=== PATIENT | male | born 1970 ===

== ENCOUNTER 2022-04-26 13:16 | Outpatient (CLI) | payer OTHER | END 2022-04-26 13:21 | disposition home or self-care (01) | LOC: RAD 13:16 | DX: M99.01 Segmental and somatic dysfunction of cervical region (principal); M99.02 Segmental and somatic dysfunction of thoracic region; M99.03 Segmental and somatic dysfunction of lumbar region; M99.04 Segmental and somatic dysfunction of sacral region; M99.05 Segmental and somatic dysfunction of pelvic region ==

== ENCOUNTER 2024-11-17 12:25 | Inpatient (IN) | payer OTHER ==
[~2024-11-17] VITALS: Ht 170.2 cm; Wt 76.2 kg
--- NOTE | 2024-11-17 12:53 | NUR ---
AL MOMENTO PACIENTE VIENE EN COMPANIA DE PARAMEDICOS DE AMBULANCIA LOS CUALES REFIEREN QUE PACIENTE SE VAISHALI EN LA MANANA DE JONATHAN. AL MOMENTO SE OBSERVA PACIENTE LETARGICO Y CON DIFICULTAD PARA RESPONDER, SE REALIZA EKG Y SE PRESENTA A MEDICO.
[2024-11-17] MEDS ORDERED: 0.9 % SODIUM CHLORIDE 250 ML IV SCH (13:15)
--- NOTE | 2024-11-17 14:01 | NUR ---
SE ORIENTA A PACIENTE SOBRE TX MEDICO QUIEN INDICA ENTENDE RY ACEPTAR. SE COLECTAN MUESTRAS DE LABORATORIO BAJO MEDIDAS ASEPTICAS, VNEOPUNCION PATENTE LAURA DE EDEMA. PACIENTE SE LLEVA A CT
[2024-11-17 14:13] LABS: HEMATOCRIT 34.9 % (39.0-48.0); MEAN CELL VOLUME 79.3 fL (80.0-100.00); PLATELET COUNT 138 K/uL (150-450)
[2024-11-17 14:14] LABS: HEMOGLOBIN 11.5 g/dL (13-16.00); MEAN CORPUSCULAR HEMOGLOBIN 26.1 pg (27.00-32.0)
[2024-11-17 14:42] LABS: ALBUMIN 3.5 gm/dL (3.4-5.0); BILIRUBIN TOTAL 1.5 mg/dL (0.3-1.2); CALCIUM 8.8 mg/dL (8.5-10.1); CREATININE SERUM 1.06 mg/dL (0.70-1.30); GFR 73.36; GLOBULINA 3.4 G/DL (2.4-3.5); POTASSIUM 3.52 mEq/L (3.5-5.1); TOTAL PROTEIN 6.9 gm/dL (6.4-8.2)
[2024-11-17 14:59] LABS: INR 1.24; PARTIAL THROMBOPLASTIN TIME 37.3 SECONDS (22.0-34.0); PROTHROMBIN TIME 13.3 SECONDS (9.0-11.5)
[2024-11-17] MEDS ORDERED: AZITHROMYCIN 500 MG VIAL IV ONE ×2 (18:30→18:45)
[2024-11-17 18:55] LABS: PH,URINE 5.5 (5.0-8.0); URINE APPEARANCE Cloudy; URINE BILIRRUBIN Negative (NEGATIVE); URINE BLOOD Small; URINE COLOR Dark Yellow; URINE KETONE Negative (NEGATIVE); URINE LEUKOCYTE Negative; URINE NITRATE Negative
[2024-11-17 19:03] LABS: URINE BACTERIA 34.2 uL (0.0-1933); URINE CAST 1.76 uL (0.0-1.40); URINE EPITHELIAL CELLS 8.2 uL (0.0-38.8); URINE WBC 4.1 uL (0.0-23.2)
[2024-11-17 19:25] LABS: URINE GLUCOSE 100 MG/DL (NEGATIVE); URINE PROTEIN 100 (NEGATIVE)
--- NOTE | 2024-11-17 22:09 | NUR ---
SE RECIBE PTE ALERTA Y ORIENTADO EN PERSONA EN EMILIE. PTE CON H/L COLOCADO, SE COLOCA GONSALEZ A PTE Y SE HAYLEY MUESTRA DE UA Y UC. PTE AL MOMENTO NO SE OBSERVA CON FAMILIARES EN CLIFFORD DE EMERGENCIAS. PTE SE CONSULTA CON PERSONAL DE TRABAJO SOCIAL POR SOPORTE FAMILIAR POBRE Y POBRE CONOCIMIENTO DEL PTE EN CUANTO A ARIS CONDICIONES MEDICAS.
[2024-11-18 10:33] LABS: HEMATOCRIT 32.9 % (39.0-48.0); MEAN CELL VOLUME 77.7 fL (80.0-100.00); MEAN CORPUSCULAR HGB CONC 34.3 g/dl (32.0-36.0); RED BLOOD COUNT 4.23 M/uL (4.00-6.00); RED CELL DISTRIBUTION WIDTH 15.1 % (11.5-14.5)
[2024-11-18 10:34] LABS: HEMOGLOBIN 11.3 g/dL (13-16.00); MEAN CORPUSCULAR HEMOGLOBIN 26.7 pg (27.00-32.0); PLATELET COUNT 148 K/uL (150-450)
[2024-11-18] MEDS ORDERED: AZITHROMYCIN 500 MG TABLET PO ONE ×2 (11:00→11:03)
[2024-11-18] MEDS ORDERED: FAMOTIDINE/PF 20 MG in 0.9 % SODIUM CHLORIDE 8 ML IV PUSH SCH (11:07)
[2024-11-18] MEDS ORDERED: CEFTRIAXONE SODIUM 2,000 MG in 0.9 % SODIUM CHLORIDE 100 ML IV SCH (11:07)
[2024-11-18] MEDS ORDERED: SODIUM CHLORIDE 0.45 % 1,000 ML IV SCH (11:15)
[2024-11-18] MEDS ORDERED: ENALAPRILAT DIHYDRATE 1.25 MG/ML VIAL IV PRN (11:15)
[2024-11-18] MEDS ORDERED: ACETAMINOPHEN 325 MG TABLET PO PRN (11:15)
[2024-11-18] MEDS ORDERED: DEXTROSE 50 % IN WATER 0.5 G/ML DISP.SYRIN IV PRN (11:30)
[2024-11-18] MEDS ORDERED: INSULIN LISPRO 1,000 UNIT/10 ML UNITS SUBCUTANEO PRN (11:30)
[2024-11-18 11:49] LABS: ABG PO2 58.7 mmHg (80-100); BASE EXCESS 1.3 mmol/l; BICARBONATE 23.8 mmol/l (23-25); SaO2 92.4 %; Tco2 24.8 mmol/l
[2024-11-18 11:51] LABS: allen test SATISFACTORY; o2 21 %; puncture site RADIAL LEFT
[2024-11-18] MEDS ORDERED: ALBUTEROL SULFATE 3 ML/2.5 MG AMPUL.NEB IH SCH (12:00)
[2024-11-18] MEDS ORDERED: FAMOTIDINE/PF 20 MG/2 ML VIAL ONE (12:29)
[2024-11-18] MEDS ORDERED: CEFTRIAXONE SODIUM 2,000 MG VIAL ONE (12:29)
[2024-11-18] MEDS ORDERED: ACETAMINOPHEN 500 MG GEL..CAP PO PRN (12:45)
[2024-11-18 15:25] VITALS: BP 147/87; O2SAT 97
[2024-11-18 18:00] VITALS: BP 137/87; O2SAT 97
[2024-11-19 02:03] VITALS: BP 146/80
[2024-11-19 06:39] LABS: HEMATOCRIT 33.8 % (39.0-48.0); HEMOGLOBIN 11.1 g/dL (13-16.00); MEAN CELL VOLUME 79.1 fL (80.0-100.00); MEAN CORPUSCULAR HEMOGLOBIN 25.9 pg (27.00-32.0); MEAN CORPUSCULAR HGB CONC 32.8 g/dl (32.0-36.0); PLATELET COUNT 171 K/uL (150-450); RED BLOOD COUNT 4.28 M/uL (4.00-6.00)
[2024-11-19 07:10] LABS: CALCIUM 8.5 mg/dL (8.5-10.1); CREATININE SERUM 0.83 mg/dL (0.70-1.30); GFR 97.29; POTASSIUM 3.75 mEq/L (3.5-5.1)
[2024-11-19 08:39] VITALS: BP 158/90
[2024-11-19] MEDS ORDERED: ENOXAPARIN SODIUM 40 MG/0.4 ML SYRINGE SUBCUTANEO SCH (09:00)
[2024-11-19] MEDS ORDERED: LEVALBUTEROL HCL 1.25 MG/3 ML SOLUTION IH SCH (09:00)
[2024-11-19] MEDS ORDERED: CARVEDILOL 6.25 MG TABLET PO NR (10:00)
[2024-11-19] MEDS ORDERED: TAMSULOSIN HCL 0.4 MG CAP PO NR (10:00)
[2024-11-19] MEDS ORDERED: NICOTINE 21MG/24HR PATCH.TD24 TD SCH (10:46)
[2024-11-19] MEDS ORDERED: INSULIN LISPRO 1,000 UNIT/10 ML UNITS SUBCUTANEO PRN (11:00)
[2024-11-19] MEDS ORDERED: LISINOPRIL 5 MG TABLET PO SCH (11:00)
[2024-11-19] MEDS ORDERED: CARVEDILOL 6.25 MG TABLET PO SCH (17:00)
[2024-11-19 20:21] VITALS: BP 133/85; O2SAT 98
[2024-11-19] MEDS ORDERED: INSULIN GLARGINE,HUM.REC.ANLOG 1,000 UNITS/10 ML UNITS SUBCUTANEO SCH (21:00)
[2024-11-20 02:19] VITALS: BP 155/90
[2024-11-20] MEDS ORDERED: TAMSULOSIN HCL 0.4 MG CAP PO SCH (09:00)
[2024-11-20 09:33] VITALS: BP 136/88
[2024-11-20] MEDS ORDERED: METHYLPREDNISOLONE SOD SUCC 40 MG VIAL IV SCH (09:46)
[2024-11-20 15:31] LABS: RAPID PLASMA REAGIN NONREACTIVE BY RPR (NONREACTIVE)
[2024-11-20 17:26] VITALS: BP 145/88; O2SAT 96
[2024-11-21 02:07] VITALS: BP 150/86
[2024-11-21 05:23] LABS: HEMOGLOBIN 11.3 g/dL (13-16.00); MEAN CELL VOLUME 79.8 fL (80.0-100.00); MEAN CORPUSCULAR HEMOGLOBIN 26.6 pg (27.00-32.0); MEAN CORPUSCULAR HGB CONC 33.3 g/dl (32.0-36.0); PLATELET COUNT 231 K/uL (150-450); RED BLOOD COUNT 4.26 M/uL (4.00-6.00); RED CELL DISTRIBUTION WIDTH 15.2 % (11.5-14.5)
[2024-11-21 05:52] LABS: CREATININE SERUM 0.83 mg/dL (0.70-1.30); GFR 97.29; POTASSIUM 4.12 mEq/L (3.5-5.1)
[2024-11-21 12:32] VITALS: BP 182/96
[2024-11-21 16:58] VITALS: BP 149/88
[2024-11-22 00:55] VITALS: BP 152/84
[2024-11-22 08:59] VITALS: BP 163/90; O2SAT 98
[2024-11-22] MEDS ORDERED: METHYLPREDNISOLONE SOD SUCC 40 MG VIAL IV SCH (17:00)
[2024-11-22 17:31] VITALS: BP 150/92
[2024-11-23 01:48] VITALS: BP 149/82
[2024-11-23 09:33] VITALS: BP 165/88; O2SAT 98
[2024-11-23 18:32] VITALS: BP 178/96
[2024-11-24 00:37] VITALS: BP 115/76
[2024-11-24] MEDS ORDERED: METHYLPREDNISOLONE SOD SUCC 40 MG VIAL IV SCH (09:00)
[2024-11-24 09:09] VITALS: BP 130/90; O2SAT 98
[2024-11-24 09:49] LABS: BASE EXCESS 2.7 mmol/l; SaO2 98.8 %; allen test SATISFACTORY; o2 21 %; puncture site RADIAL LEFT
== END 2024-11-24 12:51 | disposition home or self-care (01) | DRG 193 ==
LOC: ER 12:25 → MEDJ 11-18 13:39
PROVIDERS: Emergency Medicine; General Practice; Internal Medicine Infectious Disease; ADMIT Student in an Organized Health Care Education/Training Program; ATTEND Student in an Organized Health Care Education/Training Program
PROC: BW28ZZZ Computerized Tomography (CT Scan) of Head (ICD-10-PCS; principal; 2024-11-17)
PROC: B030ZZZ Magnetic Resonance Imaging (MRI) of Brain (ICD-10-PCS; 2024-11-18)
PROC: 5A0935A Assistance with Respiratory Ventilation, Less than 24 Consecutive Hours, High Flow/Velocity Cannula (ICD-10-PCS; 2024-11-18)
PROC: BB24ZZZ Computerized Tomography (CT Scan) of Bilateral Lungs (ICD-10-PCS; 2024-11-19)
PROC: 3E0F7GC Introduction of Other Therapeutic Substance into Respiratory Tract, Via Natural or Artificial Opening (ICD-10-PCS; 2024-11-19)
DX: J18.9 Pneumonia, unspecified organism (principal); I63.9 Cerebral infarction, unspecified; N39.0 Urinary tract infection, site not specified; G45.9 Transient cerebral ischemic attack, unspecified; I10 Essential (primary) hypertension; D72.828 Other elevated white blood cell count; E11.9 Type 2 diabetes mellitus without complications; Z79.4 Long term (current) use of insulin; R09.02 Hypoxemia; R41.82 Altered mental status, unspecified; Z72.0 Tobacco use; E86.0 Dehydration; S00.83XA Contusion of other part of head, initial encounter; W13.3XXA Fall through floor, initial encounter; Y92.510 Bank as the place of occurrence of the external cause
CPT/HCPCS: 70551

== ENCOUNTER 2025-03-24 18:52 | Emergency (ER) | payer OTHER ==
[~2025-03-24] VITALS: Ht 170.2 cm; Wt 90.7 kg
[2025-03-24] MEDS ORDERED: CEFTRIAXONE SODIUM 1,000 MG VIAL ONE (21:08)
[2025-03-24] MEDS ORDERED: FAMOTIDINE/PF 20 MG/2 ML VIAL ONE (21:09)
[2025-03-24] MEDS ORDERED: 0.9 % SODIUM CHLORIDE 1,000 ML IV ONE (21:15)
[2025-03-24] MEDS ORDERED: CEFTRIAXONE SODIUM 1,000 MG VIAL IV ONE (21:15)
[2025-03-24] MEDS ORDERED: FAMOtidine 10 MG/ML (4ML VIAL) IV ONE (21:15)
[2025-03-24 21:57] LABS: BASO % 0.3 % (0.1-1.2); EOS # 0.02 (0.04-0.54); EOS % 0.3 % (0.7-7.0); HEMATOCRIT 36.8 % (40.1-51.0); HEMOGLOBIN 12.3 g/dL (13.7-17.5); LYMPH # 0.75 (1.18-3.74); LYMPH % 9.5 % (19.3-53.1); MEAN CORPUSCULAR HEMOGLOBIN 25.9 pg (25.6-32.2); MONO # 0.34 (0.24-0.82); MONO % 4.3 % (4.7-12.5); NEUT # 6.71 (1.56-6.13); PLATELET COUNT 130 K/uL (163-369); RED BLOOD COUNT 4.75 M/uL (4.63-6.08); RED CELL DISTRIBUTION WIDTH 15.6 % (11.6-14.4)
[2025-03-24 22:13] LABS: INR 1.05; PARTIAL THROMBOPLASTIN TIME 27.9 SECONDS (22.0-34.0); PROTHROMBIN TIME 11.4 SECONDS (9.0-11.5)
[2025-03-24 22:17] LABS: ALBUMIN 4.1 gm/dL (3.4-5.0); BILIRUBIN TOTAL 0.61 mg/dL (0.3-1.2); CALCIUM 9.1 mg/dL (8.5-10.1); CREATININE SERUM 0.94 mg/dL (0.70-1.30); GFR 84.27; GLOBULINA 2.7 G/DL (2.4-3.5); POTASSIUM 3.74 mEq/L (3.5-5.1); TOTAL PROTEIN 6.8 gm/dL (6.4-8.2)
[2025-03-24] MEDS ORDERED: ONDANSETRON HCL 2 MG/ML VIAL IV ONE (23:45)
[2025-03-25] LABS: PH,URINE 5.5 (5.0-8.0); URINE APPEARANCE Clear; URINE BILIRRUBIN Negative (NEGATIVE); URINE BLOOD Negative; URINE COLOR Yellow; URINE GLUCOSE Negative (NEGATIVE); URINE KETONE Negative (NEGATIVE); URINE LEUKOCYTE Negative; URINE NITRATE Negative; URINE PROTEIN Negative (NEGATIVE); URINE UROBILINOGEN 0.2 E.U./dl
[2025-03-25 00:06] LABS: URINE BACTERIA 6.1 uL (0.0-1933); URINE EPITHELIAL CELLS 0.9 uL (0.0-38.8); URINE WBC 1.5 uL (0.0-23.2)
[2025-03-25 00:11] LABS: COCAINE NEGATIVE (NEGATIVE); METHADONE NEGATIVE (NEGATIVE); OPIATES NEGATIVE (NEGATIVE); THC ( Cannabinoids) NEGATIVE (NEGATIVE)
[2025-03-25 00:12] LABS: ABG PH 7.384 (7.35-7.45); ABG PO2 63.1 mmHg (80-100); ABG pCO2 39.6 mmHg (35-45); BASE EXCESS -1.7 mmol/l; BICARBONATE 23.1 mmol/l (23-25); SaO2 91.2 %; Tco2 24.3 mmol/l
[2025-03-25 00:17] LABS: allen test SATISFACTORY; mode ROOM AIR; o2 21 %; puncture site RADIAL RIGHT
[2025-03-25] MEDS ORDERED: ONDANSETRON HCL 2 MG/ML VIAL ONE (00:17)
[2025-03-25] MEDS ORDERED: ALBUTEROL SULFATE 3 ML/2.5 MG AMPUL.NEB IH ONE (03:56)
[2025-03-25] MEDS ORDERED: ALBUTEROL SULFATE 3 ML/2.5 MG AMPUL.NEB IH SCH (04:00)
[2025-03-25] MEDS ORDERED: ALBUTEROL2.5 MG/3 M IH (05:02)
[2025-03-25] MEDS ORDERED: ZYNCOF 20-400120 ML PO (05:02)
[2025-03-25] MEDS ORDERED: BUDESONIDE0.5 MG/2 M IH (05:02)
[2025-03-25] MEDS ORDERED: ZITHROMAX500 MG PO ×2 (05:03)
== END 2025-03-25 06:28 ==
LOC: ER 18:52
PROVIDERS: General Practice
DX: R06.02 Shortness of breath (principal); R10.9 Unspecified abdominal pain; I10 Essential (primary) hypertension; E11.9 Type 2 diabetes mellitus without complications
CPT/HCPCS: 36415; 70450; 71045; 74177; 82803; 93005; 94644; 96365; 96366; 99284; J0696; J2405; J3490; J7030; Q9965

== ENCOUNTER 2025-03-30 12:46 | Outpatient (CLI) | payer OTHER ==
[~2025-03-30 12:46] MED LIST: ALBUTEROL2.5 MG/3 M IH; BUDESONIDE0.5 MG/2 M IH; ZITHROMAX500 MG PO; ZYNCOF 20-400120 ML PO
== END 2025-03-30 12:50 | disposition home or self-care (01) ==
LOC: RAD 12:46
PROVIDERS: ATTEND Physical Medicine & Rehabilitation
DX: M54.6 Pain in thoracic spine (principal); M54.50 Low back pain, unspecified

== ENCOUNTER 2025-04-10 12:07 | Outpatient (CLI) | payer OTHER | END 2025-04-10 12:21 | disposition home or self-care (01) | LOC: MRI 12:07 | PROVIDERS: ATTEND Physical Medicine & Rehabilitation | DX: M54.50 Low back pain, unspecified (principal); M54.16 Radiculopathy, lumbar region | CPT/HCPCS: 72148 ==